=== PATIENT | male | born 1950 | race Caucasian/White ===

== ENCOUNTER → 2023-09-20 10:05 | Outpatient (REF) | payer MEDICARE, SELFPAY | LOC: HWRAD 10:05 | PROVIDERS: ATTENDING PHYSICIAN Specialist; FAMILY PHYSICIAN Family Medicine | DX: R79.89 Other specified abnormal findings of blood chemistry (principal); R35.1 Nocturia | CPT/HCPCS: 76770 ==

== ENCOUNTER → 2024-06-20 09:59 | Outpatient (REF) | payer MEDICARE, SELFPAY | LOC: RAD 09:59 | PROVIDERS: ATTENDING PHYSICIAN Internal Medicine; FAMILY PHYSICIAN Family Medicine | DX: I48.0 Paroxysmal atrial fibrillation (principal); R07.9 Chest pain, unspecified; R06.02 Shortness of breath; R93.1 Abnormal findings on diagnostic imaging of heart and coronary circulation; E66.812 Obesity, class 2 | CPT/HCPCS: 75574; Q9967 ==

== ENCOUNTER → 2024-07-10 09:47 | Outpatient (REF) | payer MEDICARE, SELFPAY | LOC: HWRAD 09:47 | PROVIDERS: ATTENDING PHYSICIAN Internal Medicine Critical Care Medicine; FAMILY PHYSICIAN Family Medicine | DX: Z87.891 Personal history of nicotine dependence (principal) | CPT/HCPCS: 71271 ==

== ENCOUNTER 2025-01-15 14:22 | Emergency (ER) | payer MEDICARE, SELFPAY ==
[2025-01-15 14:25] VITALS: BP 137/88
[2025-01-15 15:49] VITALS: BP 156/84
--- NOTE | 2025-01-15 16:09 | ED.MUSCINJ ---
HPI-Injury
General
Chief Complaint: Fall
Source: patient and spouse
Exam Limitations: none
Time Seen by Provider: 01/15/25 15:56
Nursing documentation reviewed up to this point in time: agreed with
History of Present Illness-Injury
Initial Injury comments:
74 yo male with h/o Afib on Eliquis, Diminished lung capacity, previous smoker, states 6 days ago, he tripped on his deck, fell forward impacting the left upper chest wall on the post of the deck then fell down 3 of the deck steps. No significant
injury other than bruised area left upper chest wall and significant pain in the area, not at rest but with coughing pain is severe.
Past History
Past History
ED Past Medical History: Arrthythmia (Atrial fib), NIDDM and Other (Sleep apnea)
ED Past Surgical History: Cardiac (Ablation) and Orthopedic (Rotator cuff surgery, Bilateral knee replacement.)
Social History
Tobacco: Former smoker
Alcohol: Daily (Vodka 1-2)
Personal:
Living: with family
Review of Systems
Review of Systems
Allergies reviewed?: Yes
All Other Systems: ROS reviewed and negative except as documented in HPI and ROS
Constitutional: Denies fever
Respiratory: Denies cough or trouble breathing
Cardiac: Reports chest pain (Left upper chest wall pain)
ABD/GI: Denies abdominal pain
Musculoskeletal: Denies neck pain or back pain
Skin: Reports other (Greenish-yellow ecchymosis left upper chest wall)
Phy Exam
Physical Exam
Physical Exam:
GENERAL: No acute distress. A&Ox3.
CONSTITUTIONAL: Afebrile.
EYES: clear, conjunctivae normal
ENMT: moist mucus membranes, Pharynx nl
RESPIRATORY: Regular respirations, nonlabored, lungs clear.
CARDIOVASCULAR: Regular rate and rhythm, no murmurs, no rubs.
GI: Soft, nontender, normal BS
MUSCULOSKELETAL: Left mid upper chest wall with local mild ecchymosis and tenderness. Moves with ease. Well perfused.
SKIN: Warm, dry, pink
PSYCH: Normal mood and affect. Well kept, interactive and appropriate
NEUROLOGIC: Awake, alert and oriented. No focal neurological deficits
Injury Course
Orders/Labs/Results
Orders:
Orders
01/15/25 14:30
Electrocardiogram (*1) Urgent
Reason for Study: Chest Pain
EKG- Treatment ONCE
01/15/25 14:59
Ribs, Left 3 View W/PA Chest CR [CR Ribs-left 3 Vw W/pa Chest] Urgent
Comment:
Reason For Exam: fall left rib pain
MDM/Problems Addressed
Differential Diagnosis Includes:
bruised rib, fracture rib
MDM/Problems Addressed:
74 yo male with h/o Afib on Eliquis, Diminished lung capacity, previous smoker, states 6 days ago, he tripped on his deck, fell forward impacting the left upper chest wall on the post of the deck then fell down 3 of the deck steps. No significant
injury other than bruised area left upper chest wall and significant pain in the area, not at rest but with coughing pain is severe.
Xray L ribs with PA chest: Radiology report read: No displaced rib fracture appreciated. 2. Clear lungs
*Critical Care Note
Total Time (30-74mins, 75-104mins- exclusive of procedures): Not Applicable
ED Attending Note
-
Portions of this chart may have been created with voice recognition software.� Occasional wrong word or��sound alike� substitutions may have occurred due to the inherent limitations of voice recognition software.
Discharge Plan
Departure
Patient Disposition: Home (Routine Discharge)
Date of Disposition: 01/15/25
Time of Disposition: 16:06
Patient with high blood pressure during this ER visit?: No
Condition: Good
Discharge Problem:
Chest wall contusion, Fall from slip, trip, or stumble
Instructions: Rib fracture or bruised rib - ED discharge instructions, Contusion
Prescriptions:
No Action
amiodarone [Pacerone] 200 MG tablet
100 mg PO SUTUWEFRSA
acetaminophen-codeine 1 TABLET tablet
1 - 2 tab PO Q4HPRN PRN (Reason: moderate pain)
Patient Comments:
05/19/2021: last filled 04/18/21, 30 tabs for 3 days from [id number]
glimepiride 2 MG tablet
2 mg PO DAILY
glucosamine sulfate 500 MG capsule
500 mg PO DAILY
cholecalciferol (vitamin D3) 1,000 UNITS tablet
1,000 units PO DAILY
psyllium husk [Metamucil Fiber Singles] 1 PACKET powder in packet
1 packet PO DAILY
multivitamin with folic acid [Tab-A-Talha] 1 TABLET tablet
1 tab PO DAILY
apixaban [Eliquis] 5 MG tablet
5 mg PO BID
lidocaine [Aspercreme (lidocaine)] 1 PATCH adhesive patch,medicated
1 patch topical DAILY Qty: 30 0RF
polyethylene glycol 3350 17 GRAMS powder in packet
17 grams PO DAILY Qty: 30 0RF
Referrals:
Thierry Gonzales DO [Family Provider, Family Practice]
Activity Restrictions/Additional Instructions:
As we discussed, Tylenol as needed for pain.
Splint the area with your hands or a small rolled up towel or pillow when you cough or change positions
Interventions
Interventions:
*Risk Screen - Suicide Last Done: 01/15/25 14:25
*Neglect/Abuse Screening Last Done: 01/15/25 14:25
*Nursing Disposition Last Done: 01/15/25 16:22
ED-Musculoskeletal Assessment Last Done: 01/15/25 16:15
ED- Neurological Assessment Last Done: 01/15/25 16:06
Discharge Date and Time
Discharge Date/Time: 01/15/25 16:28
Print Language: SCOTTISH
== END 2025-01-15 16:28 | disposition home or self-care (01) ==
LOC: EMR 14:22
PROVIDERS: EMERGENCY PHYSICIAN Emergency Medicine; FAMILY PHYSICIAN Family Medicine
DX: S20.212A Contusion of left front wall of thorax, initial encounter (principal); W01.198A Fall on same level from slipping, tripping and stumbling with subsequent striking against other object, initial encounter; W10.9XXA Fall (on) (from) unspecified stairs and steps, initial encounter; I48.91 Unspecified atrial fibrillation; G47.30 Sleep apnea, unspecified; M19.90 Unspecified osteoarthritis, unspecified site; E11.36 Type 2 diabetes mellitus with diabetic cataract; Z96.653 Presence of artificial knee joint, bilateral; Z87.891 Personal history of nicotine dependence; Z79.01 Long term (current) use of anticoagulants; Z79.84 Long term (current) use of oral hypoglycemic drugs
CPT/HCPCS: 99283; 71101; 93005

== ENCOUNTER 2025-02-17 06:23 | Day surgery (SDC) | payer MEDICARE, SELFPAY ==
[2025-02-17 08:04] LABS: Glucose - Point of Care 138 mg/dl (70-99)
== END 2025-02-17 10:13 | disposition home or self-care (01) ==
LOC: GI 06:23
PROVIDERS: ATTENDING PHYSICIAN Surgery
DX: Z12.11 Encounter for screening for malignant neoplasm of colon (principal); D12.3 Benign neoplasm of transverse colon; Z86.0101 Personal history of adenomatous and serrated colon polyps
CPT/HCPCS: 45385; 88305; 82962

== ENCOUNTER 2025-02-27 03:56 | Emergency (ER) | payer MEDICARE, SELFPAY ==
[2025-02-27 03:57] VITALS: BP 156/75
[2025-02-27 04:52] VITALS: BMI 36.0
[2025-02-27 05:05] VITALS: BP 109/35
[2025-02-27 05:32] LABS: INR 1.18; PT 15.5 Sec (11.4-14.6)
[2025-02-27 05:33] LABS: APTT 31.9 Sec (23.4-35.0)
[2025-02-27 05:34] LABS: Hematocrit 41.2 % (39.0-52.0); Hemoglobin 14.1 g/dL (13.0-18.0); Mean Corp Hgb Conc. 34.2 g/dL (33.0-37.0); Mean Corpuscular Volume 99.0 fL (80.0-94.0); Nucleated Red Blood Cells % 0 % (-); Platelet Count 127 10^3/uL (130-400); Red Cell Dist. Width 13.7 % (11.5-14.5)
[2025-02-27 05:54] LABS: ALT (SGPT) 27 U/L (0-50); AST (SGOT) 23 U/L (17-59); Albumin 4.0 g/dl (3.5-5.0); Alkaline Phosphatase 74 U/L (38-126); Blood Urea Nitrogen 34 mg/dl (9-20); Calcium 8.5 mg/dl (8.4-10.2); Carbon Dioxide 22 mmol/L (22-30); Chloride 111 mmol/L (98-107); Estimated Creatinine Clearance 68 ml/min; Glucose 168 mg/dl (70-99); Magnesium 2.1 mg/dl (1.6-2.3); Potassium 4.4 mmol/L (3.5-5.1); Sodium 140 mmol/L (135-145); Total Protein 6.5 g/dl (6.3-8.2); eGFR 53.40
[2025-02-27 06:00] VITALS: BP 133/63
[2025-02-27 06:06] LABS: Troponin I 0.020 ng/ml
--- NOTE | 2025-02-27 06:48 | ED.GENMED ---
History of Present Illness
<Lennox Jones, - Last Filed: 02/27/25 07:09>
General
Chief Complaint: Breathing Problem
Source: patient and spouse
Exam Limitations: none
Time Seen by Provider: 02/27/25 04:42
History of Present Illness
History of Present Illness:
Note:
CHIEF COMPLAINT(S)
Shortness of breath and facial numbness.
HISTORY OF PRESENT ILLNESS
The patient is a 74-year-old male with a past medical history significant for Chronic Obstructive Pulmonary Disease (COPD) who presented with shortness of breath and facial numbness. The patient reports experiencing these symptoms acutely after
waking up last night, stating, 'I woke up and I was gasping for air.' The shortness of breath has been present intermittently for the last 8-10 months, typically exacerbated by physical exertion such as walking. However, the intensity of these
symptoms increased last night, prompting the patient to seek medical attention. He describes a sensation of numbness in his face which was also concerning enough to contribute to his decision to come in. The patient denies experiencing chest pain or
worsening of his baseline lower extremity edema.
CHRONIC MEDICAL CONDITIONS SIGNIFICANTLY AFFECTING CARE
The patient has a history of COPD. 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
SOCIAL DETERMINANTS AFFECTING HEALTH
The patient has a significant history of smoking, noting he smoked for approximately 40-50 years before quitting.
REVIEW OF SYSTEMS
- Respiratory: Shortness of breath, especially with exertion.
- Neurological: Facial numbness.
- Cardiovascular: No chest pain, baseline stable edema, no heart failure history.
PHYSICAL EXAM
General: Alert, no acute distress.
Skin: Warm, dry.
Head: Normocephalic, atraumatic.
Neck: Supple, trachea midline.
Eye, Ears, Nose, Mouth, and Throat: Oral mucosa moist.
Cardiovascular: Normal peripheral perfusion, no edema.
Respiratory: Respirations are non-labored.
Gastrointestinal: Abdomen nondistended.
Back: Normal range of motion, normal alignment.
Musculoskeletal: Normal range of motion, normal strength.
Neurological: Alert and oriented to person, place, time, and situation, no focal neurological deficit observed.
Psychiatric: Cooperative, appropriate mood and affect.
PROBLEM LIST
Acute: Shortness of breath, facial numbness.
Chronic: Chronic Obstructive Pulmonary Disease (COPD).
PLAN
Proceed with a cardiac workup to investigate the cause of the patients symptoms.
DIFFERENTIAL DIAGNOSIS
The Differential Diagnosis includes, in no particular order and is not limited to:
1. Chronic Obstructive Pulmonary Disease exacerbation
2. Cardiac arrhythmia
3. Transient ischemic attack
4. Pulmonary embolism
5. Congestive heart failure
6. Pneumonia
7. Hyperventilation syndrome
8. Anxiety attack
9. Neuropathy
10. Myocardial infarction
Past History
<Lennox Jones DO - Last Filed: 02/27/25 07:09>
Past History
ED Past Medical History: Arrthythmia (Atrial fib), NIDDM and Other (Sleep apnea)
ED Past Surgical History: Cardiac (Ablation) and Orthopedic (Rotator cuff surgery, Bilateral knee replacement.)
Social History
Tobacco: Former smoker
Alcohol: Daily (Vodka 1-2)
Personal:
Living: with family
Phy Exam
<Lennox Jones DO - Last Filed: 02/27/25 07:09>
General Physical Exam
General Presentation: well appearing and no apparent distress
General Skin: warm and dry
General Habitus: normal
General Mental: alert
General Hydration: appears well hydrated
ENT Exam
ENT Exam: EOMI, pharynx normal, neck supple and normocephalic
Eye Exam
Eye Exam: PERRL, cornea clear and conjunctiva normal
Cardiovascular Exam
Cardiovascular Exam: regular rate/rhythm, no edema, no murmur and normal peripheral pulses
Pulmonary Exam
Pulmonary Exam: lungs clear, no respiratory distress, no rales, no crackles, no rhonchi, no stridor, no wheezing and no cough
Gastrointestinal Exam
Gastrointestinal Exam: normal bowel sounds, non tender, soft, no organomegaly, no pulsatile mass and non distended
Neurological Exam
Neurological Exam: alert, oriented x3, no motor deficits and speech normal
Musculoskeletal Exam
Musculoskeletal Exam: full ROM and no edema
Skin Exam
Skin Exam: normal color, warm/dry, no rash and no petechia
Psychiatric Exam
Psychiatric Exam: normal mood/affect
Scores
<Som Love, DO - Last Filed: 02/28/25 16:46>
Heart Failure Risk
Heart Failure Risk Score: Not Applicable
Course
<Lennox Jones, DO - Last Filed: 02/27/25 07:09>
Orders/Labs/Results
Orders:
Orders
02/27/25
Electrocardiogram (*1) Stat
Comment: DONE
02/27/25 04:06
EKG [Electrocardiogram (*1)] Urgent
Reason for Study: Shortness of Breath
EKG- Treatment ONCE
02/27/25 04:41
Cardiac Monitoring- Treatment ONCE
CR Chest - 2 Views Urgent
Comment:
Reason For Exam: dyspnea
02/27/25 05:02
Complete Blood Count/With Diff Urgent
Comprehensive Metabolic Panel Urgent
Magnesium Urgent
PTT Urgent
Prothrombin Time Urgent
Troponin I Urgent
02/27/25 06:26
EKG- Treatment ONCE
02/27/25 06:32
NT-proBNP Urgent
Troponin I Urgent
Abnormal Lab Results
02/27/25
05:02
RBC 4.16 L 10^6/uL
(4.70-6.10)
MCV 99.0 H fL
(80.0-94.0)
MCH 33.9 H pg
(27.0-31.0)
Plt Count 127 L 10^3/uL
(130-400)
MPV 10.6 H fL
(7.4-10.4)
Absolute Monos (auto) 0.7 H 10^3/uL
(0.1-0.6)
Monocytes % 10.4 H %
(1.7-9.3)
PT 15.5 H Sec
(11.4-14.6)
Chloride 111 H mmol/L
(98-107)
BUN 34 H mg/dl
(9-20)
Creatinine 1.4 H mg/dL
(0.7-1.3)
Glucose 168 H mg/dl
(70-99)
02/27/25 05:02
02/27/25 05:02
Vital Signs
Initial and Last Documented VS:
Initial Vital Signs
Temp Pulse Resp BP Pulse Ox
97.7 F 68 24 156/75 96
02/27/25 03:57 02/27/25 03:57 02/27/25 03:57 02/27/25 03:57 02/27/25 03:57
Last Documented Vital Signs
Temp Pulse Resp BP Pulse Ox
97.7 F 60 24 133/63 97
02/27/25 03:57 02/27/25 07:00 02/27/25 07:00 02/27/25 06:00 02/27/25 07:00
<Som Love DO - Last Filed: 02/28/25 16:46>
Orders/Labs/Results
Orders:
Orders
02/27/25
Electrocardiogram (*1) Stat
Comment: DONE
02/27/25 04:06
EKG [Electrocardiogram (*1)] Urgent
Reason for Study: Shortness of Breath
EKG- Treatment ONCE
02/27/25 04:41
Cardiac Monitoring- Treatment ONCE
CR Chest - 2 Views Urgent
Comment:
Reason For Exam: dyspnea
02/27/25 05:02
Complete Blood Count/With Diff Urgent
Comprehensive Metabolic Panel Urgent
Magnesium Urgent
PTT Urgent
Prothrombin Time Urgent
Troponin I Urgent
02/27/25 06:26
EKG- Treatment ONCE
02/27/25 06:32
NT-proBNP Urgent
Troponin I Urgent
Abnormal Lab Results
02/27/25
05:02
RBC 4.16 L 10^6/uL
(4.70-6.10)
MCV 99.0 H fL
(80.0-94.0)
MCH 33.9 H pg
(27.0-31.0)
Plt Count 127 L 10^3/uL
(130-400)
MPV 10.6 H fL
(7.4-10.4)
Absolute Monos (auto) 0.7 H 10^3/uL
(0.1-0.6)
Monocytes % 10.4 H %
(1.7-9.3)
PT 15.5 H Sec
(11.4-14.6)
Chloride 111 H mmol/L
(98-107)
BUN 34 H mg/dl
(9-20)
Creatinine 1.4 H mg/dL
(0.7-1.3)
Glucose 168 H mg/dl
(70-99)
02/27/25 05:02
02/27/25 05:02
Vital Signs
Initial and Last Documented VS:
Initial Vital Signs
Temp Pulse Resp BP Pulse Ox
97.7 F 68 24 156/75 96
02/27/25 03:57 02/27/25 03:57 02/27/25 03:57 02/27/25 03:57 02/27/25 03:57
Last Documented Vital Signs
Temp Pulse Resp BP Pulse Ox
97.7 F 60 24 133/63 97
02/27/25 03:57 02/27/25 07:00 02/27/25 07:00 02/27/25 06:00 02/27/25 07:00
<Lennox Jones, DO - Last Filed: 02/27/25 07:09>
*Pulse Oximetry
SaO2: 93
Oxygen Mode of Delivery: Room air
Patient hypoxic: no
*Critical Care Note
Total Time (30-74mins, 75-104mins- exclusive of procedures): Not Applicable
<Som Love, DO - Last Filed: 02/28/25 16:46>
Update Note
Update Note:
Repeat troponin unchanged. Patient received in signout for just repeat troponin. Reassessed and continues to feel well. Patient reports he woke up short of breath which she has had happened to him in the past. Had a negative cardiac
catheterization with only minimal CAD within 1 year. Patient has been seen by pulmonology and cardiology for dyspnea. Question whether this could be mucous plugging at night because patient does state that he feels much better in the morning after
he coughs. Will trial albuterol nebulizer at home for as needed use. Will also ambulate him to assure that he does not become hypoxic or significantly dyspneic recommended close outpatient follow-up
ED Attending Note
<Lennox Jones DO - Last Filed: 02/27/25 07:09>
-
Portions of this chart may have been created with voice recognition software.� Occasional wrong word or��sound alike� substitutions may have occurred due to the inherent limitations of voice recognition software.
Discharge Plan
Departure
Patient Disposition: Home (Routine Discharge)
Date of Disposition: 02/27/25
Time of Disposition: 07:31
Patient with high blood pressure during this ER visit?: No
Discharge Problem:
COPD (chronic obstructive pulmonary disease)
Instructions: Shortness of Breath (Dyspnea) (DC), Exacerbation of COPD (DC)
Prescriptions:
New
albuterol sulfate 2.5 mg /3 mL (0.083 %) solution for nebulization
2.5 mg inhalation Q4H PRN (Reason: shortness of breath or wheezing) Qty: 90 0RF
No Action
amiodarone [Pacerone] 200 MG tablet
100 mg PO SUTUWEFRSA
glimepiride 2 MG tablet
2 mg PO DAILY
cholecalciferol (vitamin D3) 1,000 UNITS tablet
1,000 units PO DAILY
Metamucil Fiber (aspartame) 1 PACKET powder in packet
1 packet PO DAILY
multivitamin with folic acid [Tab-A-Talha] 1 TABLET tablet
1 tab PO DAILY
Eliquis 5 MG tablet
5 mg PO BID
methotrexate
10 mg PO WEEKLY
furosemide 40 mg Tablet
40 mg PO BID PRN (Reason: increase sob)
adalimumab-adbm [Cyltezo(CF) Pen] 40 mg/0.4 mL Pen Injector Kit
40 mg SC Q2W
Referrals:
Thierry Gonzales DO [Family Provider, Family Practice]
Activity Restrictions/Additional Instructions:
Thank You for choosing [facility].
It was a pleasure meeting you and taking part in your care. We hope for your continued healing and wellness.
Please read discharge instructions in their entirety. However, they are for general education and may not describe your exact diagnosis at discharge. Information on your ER visit and medical conditions were discussed with you along with appropriate
follow up information...
If indicated, please take your medications as instructed and indicated on discharge paperwork.
Please schedule a follow up appointment as directed. Call to schedule an appointment
Please return to the emergency department with ANY change in, persisting, or worsening of symptoms. If any of your symptoms do not improve, or persist, or become more severe within 6-12 hours, please return to the emergency department for further
care.
Please return to the emergency department if you develop a headache, neck pain/stiffness, fever greater than 100.4F, chest pain, shortness of breath, persistent nausea, vomiting, slurred speech, difficulty walking, numbness/tingling, weakness, signs
of infection or any other symptoms that are worrisome to you.
If you have any questions or concerns please do not hesitate to call the Hospital at or E-mail me directly at [email or web address]
Interventions
Interventions:
*Risk Screen - Suicide Last Done: 02/27/25 03:57
*General Assessment Last Done: 02/27/25 03:57
*Neglect/Abuse Screening Last Done: 02/27/25 03:57
*ED- Fall Risk Assessment Last Done: 02/27/25 04:53
*ED COVID-19 Vaccine History Last Done: 02/27/25 04:53
*Nursing Disposition Last Done: 02/27/25 08:14
ED- Cardiac Assessment Last Done: 02/27/25 04:45
ED- Pulmonary Assessment Last Done: 02/27/25 04:47
Discharge Date and Time
Discharge Date/Time: 02/27/25 08:16
Print Language: INDONESIAN
[2025-02-27 07:25] LABS: Troponin I 0.019 ng/ml
--- NOTE | 2025-02-27 08:09 | EDRN ---
information technology internship performed ambulation trial on patient. Pt denied any TRINIDAD. Pt given nebulizer machine.
== END 2025-02-27 08:16 | disposition home or self-care (01) ==
LOC: EMR 03:56
PROVIDERS: EMERGENCY PHYSICIAN Student in an Organized Health Care Education/Training Program; FAMILY PHYSICIAN Family Medicine
DX: J44.1 Chronic obstructive pulmonary disease with (acute) exacerbation (principal); R20.0 Anesthesia of skin; G47.30 Sleep apnea, unspecified; E11.9 Type 2 diabetes mellitus without complications; I48.91 Unspecified atrial fibrillation; I25.10 Atherosclerotic heart disease of native coronary artery without angina pectoris; Z79.01 Long term (current) use of anticoagulants; Z96.653 Presence of artificial knee joint, bilateral; Z87.891 Personal history of nicotine dependence; Z88.8 Allergy status to other drugs, medicaments and biological substances
CPT/HCPCS: 99285; 71046; 80053; 83735; 83880; 84484; 85025; 85610; 85730; 93005

== ENCOUNTER → 2025-03-11 06:52 | Outpatient (REF) | payer MEDICARE, SELFPAY | LOC: RCS 06:52 | PROVIDERS: ATTENDING PHYSICIAN Internal Medicine; FAMILY PHYSICIAN Family Medicine | DX: R06.02 Shortness of breath (principal) | CPT/HCPCS: 93306 ==

== ENCOUNTER → 2025-04-07 07:08 | Outpatient (REF) | payer MEDICARE, SELFPAY | LOC: HWRAD 07:08 | PROVIDERS: ATTENDING PHYSICIAN Family Medicine | DX: R10.84 Generalized abdominal pain (principal) | CPT/HCPCS: 76700 ==

== ENCOUNTER → 2025-07-14 09:32 | Outpatient (REF) | payer MEDICARE, SELFPAY | LOC: HWRAD 09:32 | PROVIDERS: ATTENDING PHYSICIAN Internal Medicine Critical Care Medicine; FAMILY PHYSICIAN Family Medicine | DX: Z87.891 Personal history of nicotine dependence (principal) | CPT/HCPCS: 71271 ==

== ENCOUNTER → 2025-07-23 14:44 | Outpatient (REF) | payer MEDICARE, SELFPAY | LOC: REG 14:44 | PROVIDERS: ATTENDING PHYSICIAN Family Medicine | DX: M25.551 Pain in right hip (principal); M25.552 Pain in left hip | CPT/HCPCS: 73522 ==